=== PATIENT | female | born 1990 | race Caucasian/White ===

== ENCOUNTER 2016-12-05 10:43 | Inpatient (IN) | payer MEDICAID ==
[~2016-12-05] VITALS: Ht 144.8 cm; Wt 48.6 kg
[2016-12-05] MEDS ORDERED: CARBOPROST 250 MCG INJ IM PRN ×2 (11:00→21:00)
[2016-12-05] MEDS ORDERED: OXYTOCIN 30 UNITS/LR 500 ML IV SCH (11:00)
[2016-12-05] MEDS ORDERED: OXYTOCIN 30 UNITS/LR 500 ML IV PRN ×2 (11:00→21:00)
[2016-12-05] MEDS ORDERED: MISOPROSTOL 200 MCG TAB PR PRN ×2 (11:00→21:00)
[2016-12-05] MEDS ORDERED: METHYLERGONOVINE 0.2 MG INJ IM PRN ×2 (11:00→21:00)
[2016-12-05] MEDS ORDERED: CEFAZOLIN 2 GM/50 ML (PMX) 50 ML IVPB SCH (11:00)
--- NOTE | 2016-12-05 11:23 | RADRPT ---
PROCEDURE: Limited OB ultrasound CLINICAL INDICATION: Breech presentation TECHNIQUE: Sonographic evaluation to assess the position was performed. Transabdominal imag ing of the gravid uterus was performed. COMPARISON: No prior exam is available for comparison. FINDINGS: There is a single live intrauterine with cardiac activity, with a heart rate o f 139 bpm. position is breech. The placenta is posterior. There is no evidence of placental abruption or previa. IMPRESSION: Breech presentation. RPTAT: HH .Eli Mendieta MD, MD Date Time Electronically viewed and signed by .Eli Mendieta MD, MD on 12/05/2016 11:23 .G/
[2016-12-05 11:46] LABS: BASOPHIL # 0.1 10^3/ul (0.0-0.1); BASOPHILS % 0.6 % (0.0-2.0); EOSINOPHILS # 0.1 10^3/ul (0.0-0.5); EOSINOPHILS % 1.2 % (0.0-7.0); HEMATOCRIT 38.4 % (37.0-47.0); LYMPHOCYTES # 2.7 10^3/ul (0.8-2.9); LYMPHOCYTES % 29.2 % (15.0-51.0); MEAN CORPUSCULAR HEMOGLOBIN 29.3 pg (29.0-33.0); MEAN CORPUSCULAR HGB CONC 33.7 g/dl (32.0-37.0); MEAN CORPUSCULAR VOLUME 86.7 fl (82.0-101.0); MEAN PLATELET VOLUME 8.4 fl (7.4-10.4); MONOCYTE # 0.7 10^3/ul (0.3-0.9); MONOCYTES % 7.3 % (0.0-11.0); NEUTROPHIL # 5.8 10^3/ul (1.6-7.5); NEUTROPHILS % 61.7 % (39.0-77.0); PLATELET COUNT 217 10^3/UL (140-440); RED BLOOD COUNT 4.43 10^6/ul (4.20-5.40); RED CELL DISTRIBUTION WIDTH 14.4 % (11.5-14.5); UNCORRECTED WBC 9.4 10^3/ul (4.8-10.8); WHITE BLOOD COUNT 9.4 10^3/ul (4.8-10.8)
[2016-12-05 11:50] LABS: CONDITION 1
[2016-12-05 11:56] VITALS: Ht 144.8 cm; Wt 48.6 kg
[2016-12-05 11:57] LABS: INR 0.87; PARTIAL THROMBOPLASTIN TIME 23.6 Sec (25.0-35.0); PROTIME 11.8 Sec (12.2-14.2); PT RATIO 0.9
[2016-12-05 11:59] VITALS: BP 122/79; PULSE 94; RESP 18
[2016-12-05] MEDS: LACTATED RINGER'S 1,000 ML IV SCH ×3 (12:43→21:39)
[2016-12-05] MEDS ORDERED: KETOROLAC 30 MG INJ ONE (15:07)
[2016-12-05] MEDS ORDERED: PROPOFOL 20 ML ONE (15:07)
[2016-12-05] MEDS ORDERED: SUCCINYLCHOLINE CHLORIDE 100 MG/5 ML SYG IV ONE (15:07)
[2016-12-05] MEDS ORDERED: METOCLOPRAMIDE 10 MG INJ ONE (15:07)
[2016-12-05] MEDS ORDERED: ONDANSETRON 4 MG INJ ONE (15:07)
[2016-12-05] MEDS ORDERED: HYDROmorphONE 2 MG/ML SYG ONE (15:21)
[2016-12-05] MEDS ORDERED: PHENYLephrine (100 MCG/ML) 5ML SYG ONE (15:40)
[2016-12-05] MEDS ORDERED: DIPHENHYDRAMINE 50 MG INJ IV PRN ×2 (16:00)
[2016-12-05] MEDS ORDERED: METOCLOPRAMIDE 10 MG INJ IV PRN (16:00)
[2016-12-05] MEDS ORDERED: ONDANSETRON 4 MG INJ IV PRN ×2 (16:00)
[2016-12-05] MEDS ORDERED: HYDROmorphONE 1 MG/ML SYG IV PRN ×2 (16:00)
[2016-12-05] MEDS ORDERED: EPHEDrine SULFATE 50 MG/5 ML SYG IV PRN (16:00)
[2016-12-05] MEDS ORDERED: ACETAMINOPHEN/CODEINE #3 TAB PO PRN ×2 (16:00→21:00)
[2016-12-05] MEDS ORDERED: MEPERIDINE 25 MG INJ IV PRN (16:00)
[2016-12-05] MEDS ORDERED: HYDROmorphONE (0.2 MG/ML) 10ML SYG IV PRN ×3 (16:00)
[2016-12-05] MEDS ORDERED: NALOXONE (0.4 MG/ML) INJ IV PRN (16:00)
[2016-12-05] MEDS ORDERED: HYDROmorphONE 0.2 MG/ML PCA IV SCH (16:00)
--- NOTE | 2016-12-05 16:11 | HP ---
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 Blood Type: O- Rubella: immune RPR/VDRL: Negative GBS Status: Negative HBsAG: Positive OB Admission Exam Vital Signs Vital Signs Vital Signs Date Time Temp Pulse Resp B/P Pulse Ox O2 Delivery O2 Flow Rate FiO2 12/05/16 11:59 98.1 94 18 122/79 Room Air Physical Exam HEENT: WNL Heart: Rhythm Normal Lungs: Clear, Equal Abdomen: WNL Extremities: Normal Reflexes: Normal Cervical Dilatation: None Effacement: 0% Station: -3 Membranes: Intact Heart Rate: 140's Accelerations: Accelerations Present Decelerations: No Decelerations Varibility: Marked Contractions on Admission: None Last 72 hours Lab Results CBC & BMP 12/05/16 11:20 OB Assessment/Plan Other Assessment: breech presentation at term Other plan: primary C/S TAMI CHAUDHARI MD Dec 05, 2016 16:11
--- NOTE | 2016-12-05 16:14 | OPR ---
Operative Report Planned Procedure Procedure date Dec 05, 2016 Procedure(s) primary C/S Performed by: TAMI CHAUDHARI MD Assisting provider: BEN AREVALO MD Anesthesiologist: MARK GATICA MD Pre-procedure diagnosis breech presentation at term Anesthesia Type: general Procedure Description Under satisfactory anaesthesia a Pfannenstiel incision was made two fingerbreadth above and parallel to the symphysis of pubis. Incision was extended laterally to the border of the Recti muscles on either sides. Incision was carried down with sharp and blunt dissection until fascia was reached. Anterior Recti muscle fascia was incised in mid portion and incision extended laterally to the border of skin incision. Fascia was mobilized from muscle superiorly and Recti muscles were from midline using sharp and blunt dissection. Peritoneum was visualized; Avoiding bowel and bladder it was incised . Incision was extended superiorly and inferiorly. Bladder blade was placed. Posterior peritoneum covering the lower segment of the uterus and lower segment of the uterus were incised. Incision was extended laterally to the border of Round Lig. on either sides and baby was delivered via total breech extraction without difficulty. Amniotic fluid appeared clear. Cord blood was obtained and cord had 3 vessels . Placenta was delivered spontaneously and appeared intact and complete. Intrauterine cavity was rubbed with a laparotomy sponge. Uterine incision was closed in 2 layers using running stitches of No1 Monocryl. Hemostasis appeared secure. Ovaries and Fallopian tubes were within normal limits. Announcing needle, lap sponge and instrument count to be correct abdomen was closed in layers as follows: Peritoneum and Recti muscles with running stitches of 20 Vicryl. Fascia with running stitch of No 1 PDS. Subcutaneous tissue with running stitches of 20 Chromic and skin was closed using kym. Patient tolerated the procedure well and was transferred to [facility] in good condition. Post-Procedure Post-procedure diagnosis S/P C/S Findings: Live Baby in footling breech presentation Specimen removed: No Complications: None Pt Condition post procedure: stable Disposition: PACU Physician Certification I, the undersigned physician, hereby certify that I have discussed the procedure described in this consent form with this patient (or the patient's legal front office representative), including: * The risk and benefits of the procedure; * Any adverse reactions that may reasonably be expected to occur; * Any alternative efficacious methods of treatment which may be medically viable ; * The potential problems that may occur during recuperation; * Potential for blood transfusion and associated risks/benefits; and * Any research or economic interest I may have regarding this treatment. I further certify that the patient/legally responsible person was encouraged to ask question and that all questions were answered. TAMI CHAUDHARI MD Dec 05, 2016 16:14
[2016-12-05] MEDS: HYDROmorphONE 1 MG/ML SYG IV PRN (17:18)
[2016-12-05 20:35] VITALS: BP 111/66; PULSE 83; RESP 18
[2016-12-05] MEDS: SENNA/DOCUSATE NA (8.6MG/50MG) TAB PO SCH (21:00)
[2016-12-05] MEDS ORDERED: LANOLIN 7 GM TUBE TOP PRN (21:00)
[2016-12-05] MEDS ORDERED: NA PHOSPHATE/BIPHOS 133 ML ENEMA PR PRN (21:00)
[2016-12-05 21:05] VITALS: BP 114/73; PULSE 85; RESP 18
--- NOTE | 2016-12-05 21:20 | DELSUM ---
Delivery Summary A-C Datetime Report Generated by CPN: 12/05/2016 21:19 DELIVERY PERSONNEL Beer Coil Cleaner: Rebecca De La Garza MATERNAL INFORMATION Delivery Anesthesia: General Medications in Delivery: SEE ANESTHESIA RECORD Estimated Blood Loss (ml): 500 Placenta Cultured: No Maternal Complications: Other Other Maternal Complications: HEPATITIS B POSITIVE LABOR SUMMARY EDC: 12/12/2016 00:00 No. Babies in Womb: 0 Attempted: No Labor Anesthesia: None LABOR INFORMATION Reason for Induction: Not Applicable Oxytocin: N/A Group B Beta Strep: Negative Antibiotics # of Doses: ANCEF 2 GMS IVPB Antibiotics Time of Last Dose: ANCEF AT 1514 Steroids Given: None Reason Steroids Not Administered: Not Applicable MEMBRANES Membranes Rupture Method: Artificial Rupture of Membranes: 12/05/2016 15:35 Length of Rupture (hr): 0.02 Amniotic Fluid Color: Clear Amniotic Fluid Amount: Moderate Amniotic Fluid Odor: None STAGES OF LABOR Stage 3 hr: 1 Stage 3 min: 0 CSECTION DELIVERY Primary Indication: Breech Presentation CSection Urgency: Elective CSection Incidence: Primary Labor: No Labor Elective: Elective CSection Incision: Lower Uterine Transverse BABY A INFORMATION Delivery Date/Time: 12/05/2016 15:36 Method of Delivery: Born in Route : No : N/A Forceps: N/A Vacuum Extraction: N/A Shoulder Dystocia : N/A SHOULDER DYSTOCIA BABY A Infant Delivery Date/Time: 12/05/2016 15:36 PRESENTATION/POSITION BABY A Presentation: Breech Cephalic Presentation: N/A Breech Presentation: Hieu PLACENTA INFORMATION BABY A Placenta Delivery Time : 12/05/2016 16:36 Placenta Method of Delivery: Manual Removal Placenta Status: Delivered SCORES BABY A Heart Rate 1 min: >100 bpm Resp Effort 1 min: Good Cry Reflex Irritability 1 min: Grimace Muscle Tone 1 min: Active Motion Color 1 min: Blue/Pale Resuscitation Effort 1 min: Tactile Stimulation; Oxygen SCORE 1 MIN: 7 Heart Rate 5 min: >100 bpm Resp Effort 5 min: Good Cry Reflex Irritability 5 min: Grimace Muscle Tone 5 min: Active Motion Color 5 min: Body [place], Extremit Blue SCORE 5 MIN: 8 INFANT INFORMATION BABY A Gestational Age at Delivery: 39.0 Gestational Status: Full Term- 39- 40.6 Weeks Outcome : Liveborn Infant Condition : Stable Infant Sex: Female IDENTIFICATION/MEDS BABY A ID Band Number: [id number] ID Band Location: Right Leg; Left Arm Sensor Applied: Yes Sensor Number: [id number] Sensor Location : Cord Clamp Vitamin K Given : Not Given Erythromycin Given: Not Given WEIGHT/LENGTH BABY A Infant Birthweight (gm): 3125 Infant Weight (lb): 6 Weight (oz): 14 Infant Length (in): 19.00 Infant Length (cm): 48.26 CORD INFORMATION BABY A No. Cord Vessels: 3 Nuchal Cord : N/A Cord Blood Taken: Yes Infant Suction: Mouth; Nose ASSESSMENT BABY A Infant Complications: None Physical Findings at Delivery: Within Normal Limits Respirations: Appears Normal Gaming Host/ALS Called : No Infant Care By: OSWALDO ESPINO RN; Denia Miner RT Transferred To: Remains with Mother
[2016-12-05] MEDS: CEFAZOLIN 2 GM/50 ML (PMX) 50 ML IV SCH (21:41)
[2016-12-05] MEDS: IBUPROFEN 800 MG TAB PO SCH (22:00)
[2016-12-06] VITALS: BP 100/55; PULSE 88; RESP 18
[2016-12-06] MEDS: HYDROmorphONE 1 MG/ML SYG IV PRN (00:33)
[2016-12-06] MEDS ORDERED: KETOROLAC 30 MG INJ IV PRN ×3 (02:00→02:30)
[2016-12-06] MEDS ORDERED: morphine 10 MG INJ IV PRN (02:00)
[2016-12-06] MEDS ORDERED: morphine 10 MG INJ IM PRN ×2 (02:00)
[2016-12-06] MEDS ORDERED: morphine 2 MG INJ IV PRN (02:00)
[2016-12-06] MEDS: KETOROLAC 30 MG INJ IV PRN ×3 (02:20→14:53)
[2016-12-06 04:25] VITALS: BP 98/53; PULSE 86; RESP 18
[2016-12-06] MEDS: CEFAZOLIN 2 GM/50 ML (PMX) 50 ML IV SCH ×2 (05:23→13:27)
[2016-12-06] MEDS: CLINDAMYCIN 300 MG CAP PO SCH ×4 (05:25→23:41)
[2016-12-06] MEDS: LACTATED RINGER'S 1,000 ML IV SCH ×3 (05:29→20:53)
[2016-12-06 07:30] VITALS: BP 107/61; PULSE 92; RESP 19
[2016-12-06] MEDS: IBUPROFEN 800 MG TAB PO SCH ×3 (07:45→21:52)
[2016-12-06] MEDS: SENNA/DOCUSATE NA (8.6MG/50MG) TAB PO SCH ×2 (08:08→21:02)
[2016-12-06 08:26] LABS: BASOPHILS % 0.2 % (0.0-2.0); EOSINOPHILS # 0.1 10^3/ul (0.0-0.5); EOSINOPHILS % 0.4 % (0.0-7.0); HEMATOCRIT 33.1 % (37.0-47.0); HEMOGLOBIN 11.2 g/dl (12.0-16.0); LYMPHOCYTES # 1.6 10^3/ul (0.8-2.9); LYMPHOCYTES % 11.1 % (15.0-51.0); MEAN CORPUSCULAR HEMOGLOBIN 29.4 pg (29.0-33.0); MEAN CORPUSCULAR HGB CONC 33.8 g/dl (32.0-37.0); MEAN PLATELET VOLUME 8.5 fl (7.4-10.4); MONOCYTE # 0.6 10^3/ul (0.3-0.9); MONOCYTES % 3.8 % (0.0-11.0); NEUTROPHIL # 12.5 10^3/ul (1.6-7.5); NEUTROPHILS % 84.5 % (39.0-77.0); PLATELET COUNT 206 10^3/UL (140-440); RED CELL DISTRIBUTION WIDTH 14.3 % (11.5-14.5); UNCORRECTED WBC 14.8 10^3/ul (4.8-10.8); WHITE BLOOD COUNT 14.8 10^3/ul (4.8-10.8)
[2016-12-06 08:36] LABS: CONDITION 1
[2016-12-06] MEDS ORDERED: BISACODYL 10 MG SUPP PR ONE (11:00)
[2016-12-06 12:00] VITALS: BP 111/65; PULSE 89; RESP 18
[2016-12-06 13:13] LABS: BASOPHILS % 0.1 % (0.0-2.0); EOSINOPHILS % 0.3 % (0.0-7.0); HEMATOCRIT 33.8 % (37.0-47.0); HEMOGLOBIN 11.2 g/dl (12.0-16.0); LYMPHOCYTES # 1.5 10^3/ul (0.8-2.9); LYMPHOCYTES % 9.8 % (15.0-51.0); MEAN CORPUSCULAR HEMOGLOBIN 29.1 pg (29.0-33.0); MEAN CORPUSCULAR VOLUME 88.1 fl (82.0-101.0); MEAN PLATELET VOLUME 8.3 fl (7.4-10.4); MONOCYTE # 0.7 10^3/ul (0.3-0.9); MONOCYTES % 4.5 % (0.0-11.0); NEUTROPHIL # 12.8 10^3/ul (1.6-7.5); NEUTROPHILS % 85.3 % (39.0-77.0); PLATELET COUNT 204 10^3/UL (140-440); RED BLOOD COUNT 3.84 10^6/ul (4.20-5.40); RED CELL DISTRIBUTION WIDTH 14.9 % (11.5-14.5)
[2016-12-06 13:25] LABS: CONDITION 1; LH ANALYZER COMMENTS 1
[2016-12-06 16:00] VITALS: BP 106/67; PULSE 99; RESP 18
[2016-12-06 19:50] VITALS: BP 118/69; PULSE 89; RESP 19
[2016-12-06] MEDS: OXYCODONE/ACETAMINOPHEN (5/325) TAB PO PRN (21:02)
--- NOTE | 2016-12-06 23:45 | PN ---
Date/Time of Note Date/Time of Note DATE: 12/06/16 TIME: 23:43 Assessment/Plan VTE Prophylaxis VTE Prophylaxis Intervention: ambulation Lines/Catheters IV Catheter Type (from Nrs): Saline Lock Assessment/Plan Assessment/Plan POD # 1 S/P C/S will advance diet and ambulate Subjective 24 Hr Interval Summary NO BM passing flatus Exam/Review of Systems Vital Signs Vitals Vital Signs Date Time Temp Pulse Resp B/P Pulse Ox O2 Delivery O2 Flow Rate FiO2 12/06/16 19:50 98.2 89 19 118/69 Room Air 12/06/16 12:45 97 21 Intake and Output 12/05/16 12/05/16 12/06/16 15:00 23:00 07:00 Intake Total 2000 ml 625 ml 1045 ml Output Total 150 ml 1450 ml 450 ml Balance 1850 ml -825 ml 595 ml Exam Free Text/Dictation abdomen: sof BS + incision: covered Results Result Diagram: 12/06/16 1243 TAMI CHAUDHARI MD Dec 06, 2016 23:44
[2016-12-07] MEDS: LACTATED RINGER'S 1,000 ML IV SCH ×3 (02:05→20:03)
[2016-12-07 04:04] VITALS: BP 101/68; PULSE 86; RESP 19
[2016-12-07] MEDS: OXYCODONE/ACETAMINOPHEN (5/325) TAB PO PRN ×3 (04:04→18:41)
[2016-12-07] MEDS: IBUPROFEN 800 MG TAB PO SCH ×3 (05:31→22:05)
[2016-12-07] MEDS: CLINDAMYCIN 300 MG CAP PO SCH ×4 (05:31→23:56)
[2016-12-07 07:30] VITALS: BP 102/61; PULSE 88; RESP 18
[2016-12-07 08:13] LABS: BASOPHILS % 0.2 % (0.0-2.0); EOSINOPHILS # 0.2 10^3/ul (0.0-0.5); EOSINOPHILS % 1.2 % (0.0-7.0); HEMATOCRIT 31.3 % (37.0-47.0); HEMOGLOBIN 10.4 g/dl (12.0-16.0); LYMPHOCYTES # 1.8 10^3/ul (0.8-2.9); LYMPHOCYTES % 11.3 % (15.0-51.0); MEAN CORPUSCULAR HEMOGLOBIN 28.9 pg (29.0-33.0); MEAN CORPUSCULAR HGB CONC 33.2 g/dl (32.0-37.0); MEAN CORPUSCULAR VOLUME 87.2 fl (82.0-101.0); MONOCYTE # 0.8 10^3/ul (0.3-0.9); NEUTROPHIL # 12.9 10^3/ul (1.6-7.5); NEUTROPHILS % 82.3 % (39.0-77.0); PLATELET COUNT 220 10^3/UL (140-440); RED BLOOD COUNT 3.58 10^6/ul (4.20-5.40); RED CELL DISTRIBUTION WIDTH 14.6 % (11.5-14.5); UNCORRECTED WBC 15.7 10^3/ul (4.8-10.8); WHITE BLOOD COUNT 15.7 10^3/ul (4.8-10.8)
[2016-12-07 08:36] LABS: CONDITION 1; LH ANALYZER COMMENTS 1
[2016-12-07] MEDS: SENNA/DOCUSATE NA (8.6MG/50MG) TAB PO SCH ×2 (08:49→22:05)
[2016-12-07 16:00] VITALS: BP 100/56; PULSE 88; RESP 19
--- NOTE | 2016-12-07 18:34 | DS ---
Date/Time of Note Date/Time of Note home next day DATE: 12/07/16 TIME: 18:32 Obstetrical Discharge Record Final Diagnosis Final Diagnosis: Term delivered Section Section: Primary Primary Indication Breech Condition on Discharge Physical Assessment Last Vitals: see nurses notes Voiding: Yes Bowel Movement: Yes Breast: Soft, non-tender, Filling Fundus: Firm Abdomen and Incision: soft BS incision : healing well Episiotomy: NA Calf Tenderness: No Patient Condition: Good TAMI CHAUDHARI MD Dec 07, 2016 18:34
--- NOTE | 2016-12-07 18:36 | DS ---
Date/Time of Note Date/Time of Note DATE: 12/07/16 TIME: 18:34 Discharge Summary Admission/Discharge Info Admit Date/Time Dec 05, 2016 at 10:43 Discharge Date/Time 12/08/2016 Final Diagnosis S/P C/S Patient Condition: Good Procedures primary C/S for breech Hx of Present Illness 27 y/o female had primary C/S for Breech Hospital Course uncomplicated Pending Labs Laboratory Tests Test 12/07/16 07:15 Basophils # 0.010^3/ul (0.0-0.1) Basophils % 0.2% (0.0-2.0) Blood Morphology Comment Eosinophils # 0.210^3/ul (0.0-0.5) Eosinophils % 1.2% (0.0-7.0) Hematocrit 31.3% (37.0-47.0) Hemoglobin 10.4g/dl (12.0-16.0) Lymphocytes # 1.810^3/ul (0.8-2.9) Lymphocytes % 11.3% (15.0-51.0) Mean Corpuscular Hemoglobin 28.9pg (29.0-33.0) Mean Corpuscular Hemoglobin Concent 33.2g/dl (32.0-37.0) Mean Corpuscular Volume 87.2fl (82.0-101.0) Mean Platelet Volume 8.0fl (7.4-10.4) Monocytes # 0.810^3/ul (0.3-0.9) Monocytes % 5.0% (0.0-11.0) Neutrophils # 12.910^3/ul (1.6-7.5) Neutrophils % 82.3% (39.0-77.0) Nucleated Red Blood Cells # 0.010^3/ul (0.0-0.0) Nucleated Red Blood Cells % 0.0/100WBC (0.0-0.0) Platelet Count 22806^3/UL (140-440) Red Blood Count 3.5810^6/ul (4.20-5.40) Red Cell Distribution Width 14.6% (11.5-14.5) White Blood Count 15.710^3/ul (4.8-10.8) TAMI CHAUDHARI MD Dec 07, 2016 18:36
--- NOTE | 2016-12-07 18:38 | PD.PPDC ---
MANAGER CONTROL Discharge Instruction Provider Information Physician Information 27 y/o female had primary C/S for breech presentation Diagnosis Final Diagnosis: S/P C/S Condition Patient Condition: Good Diet Diet: Resume Regular Diet Activity/Restrictions Activity: March Shower Restrictions: No Exercising No Lifting Nothing in the Vagina Return to Work or School: Feb 06, 2017 Follow-up Follow-up with Physician: 4, Day/Days (in clinic for staple removal ) Return to clinic for FOREMAN/PROJECT MANAGER Instructions: Fever greater than 101 Chills Excessive Vaginal Bleeding OB Instructions: Breast Tenderness Depression Surgical Instructions: Incisional Drainage Incisional Redness TAMI CHAUDHARI MD Dec 07, 2016 18:37
[2016-12-07] MEDS ORDERED: IBUP800T25 PO (18:43)
[2016-12-07 19:30] VITALS: BP 114/76; PULSE 91; RESP 18
[2016-12-08] MEDS: LACTATED RINGER'S 1,000 ML IV SCH (00:47)
[2016-12-08 03:50] VITALS: BP 109/60; PULSE 92; RESP 19
[2016-12-08] MEDS: OXYCODONE/ACETAMINOPHEN (5/325) TAB PO PRN ×2 (04:23→12:18)
[2016-12-08] MEDS: CLINDAMYCIN 300 MG CAP PO SCH ×2 (05:38→11:38)
[2016-12-08] MEDS: IBUPROFEN 800 MG TAB PO SCH ×3 (05:38→22:27)
[2016-12-08 08:00] VITALS: BP 117/76; PULSE 81; RESP 18
[2016-12-08 08:05] LABS: EOSINOPHILS # 0.3 10^3/ul (0.0-0.5); EOSINOPHILS % 1.8 % (0.0-7.0); HEMATOCRIT 32.4 % (37.0-47.0); HEMOGLOBIN 10.9 g/dl (12.0-16.0); LYMPHOCYTES # 1.7 10^3/ul (0.8-2.9); LYMPHOCYTES % 11.4 % (15.0-51.0); MEAN CORPUSCULAR HEMOGLOBIN 29.6 pg (29.0-33.0); MEAN CORPUSCULAR HGB CONC 33.6 g/dl (32.0-37.0); MEAN CORPUSCULAR VOLUME 87.9 fl (82.0-101.0); MEAN PLATELET VOLUME 8.2 fl (7.4-10.4); MONOCYTE # 0.8 10^3/ul (0.3-0.9); MONOCYTES % 5.1 % (0.0-11.0); NEUTROPHIL # 12.2 10^3/ul (1.6-7.5); NEUTROPHILS % 81.7 % (39.0-77.0); PLATELET COUNT 237 10^3/UL (140-440); RED BLOOD COUNT 3.69 10^6/ul (4.20-5.40); RED CELL DISTRIBUTION WIDTH 14.1 % (11.5-14.5); UNCORRECTED WBC 14.9 10^3/ul (4.8-10.8); WHITE BLOOD COUNT 14.9 10^3/ul (4.8-10.8)
[2016-12-08 08:13] LABS: CONDITION 1
[2016-12-08] MEDS ORDERED: DIPHTH/TET/ACEL PERTUSS (ADULT) 0.5 ML VIAL IM* ONE (09:00)
[2016-12-08] MEDS ORDERED: MEASLES,MUMPS,RUBELLA VACCINE INJ SC* ONE (09:00)
[2016-12-08] MEDS: SENNA/DOCUSATE NA (8.6MG/50MG) TAB PO SCH ×2 (09:07→21:01)
--- NOTE | 2016-12-08 14:09 | QN ---
Documentation Comment patient with condition and physical inability to walk will D/C home next day PO antibiotic change TAMI CHAUDHARI MD Dec 08, 2016 14:09
[2016-12-08 15:50] VITALS: BP 102/65; PULSE 76; RESP 19
[2016-12-08 20:00] VITALS: BP 112/76; PULSE 91; RESP 18
[2016-12-08] MEDS: DOXYCYCLINE 100 MG TAB PO SCH (21:01)
[2016-12-09] MEDS: OXYCODONE/ACETAMINOPHEN (5/325) TAB PO PRN ×3 (02:24→14:54)
[2016-12-09 03:50] VITALS: BP 102/67; PULSE 85; RESP 21
[2016-12-09] MEDS: IBUPROFEN 800 MG TAB PO SCH ×2 (05:31→14:09)
[2016-12-09 07:43] LABS: BASOPHILS % 0.4 % (0.0-2.0); EOSINOPHILS # 0.3 10^3/ul (0.0-0.5); EOSINOPHILS % 2.5 % (0.0-7.0); HEMATOCRIT 34.1 % (37.0-47.0); HEMOGLOBIN 11.6 g/dl (12.0-16.0); LYMPHOCYTES # 2.5 10^3/ul (0.8-2.9); LYMPHOCYTES % 21.3 % (15.0-51.0); MEAN CORPUSCULAR HEMOGLOBIN 29.7 pg (29.0-33.0); MEAN CORPUSCULAR HGB CONC 34.1 g/dl (32.0-37.0); MEAN CORPUSCULAR VOLUME 86.9 fl (82.0-101.0); MEAN PLATELET VOLUME 8.1 fl (7.4-10.4); MONOCYTE # 0.6 10^3/ul (0.3-0.9); MONOCYTES % 5.3 % (0.0-11.0); NEUTROPHIL # 8.3 10^3/ul (1.6-7.5); NEUTROPHILS % 70.5 % (39.0-77.0); PLATELET COUNT 282 10^3/UL (140-440); RED BLOOD COUNT 3.92 10^6/ul (4.20-5.40); RED CELL DISTRIBUTION WIDTH 14.1 % (11.5-14.5); UNCORRECTED WBC 11.8 10^3/ul (4.8-10.8); WHITE BLOOD COUNT 11.8 10^3/ul (4.8-10.8)
[2016-12-09 07:56] LABS: CONDITION 1
[2016-12-09 08:45] VITALS: BP 106/68; PULSE 76; RESP 18
[2016-12-09] MEDS: SENNA/DOCUSATE NA (8.6MG/50MG) TAB PO SCH (08:46)
[2016-12-09] MEDS: DOXYCYCLINE 100 MG TAB PO SCH (08:46)
[2016-12-09 12:15] VITALS: BP 110/66; PULSE 72; RESP 20
[2016-12-09 16:30] VITALS: BP 108/88; PULSE 77; RESP 18
== END 2016-12-09 17:28 | disposition home or self-care (01) | DRG 766 ==
LOC: L-D 10:43 → PP1 20:34
PROVIDERS: ADMIT Obstetrics & Gynecology; ATTEND Obstetrics & Gynecology
PROC: 10D00Z1 Extraction of Products of Conception, Low, Open Approach (ICD-10-PCS; principal; 2016-12-05 12:30)
PROC: 3E00X4Z Introduction of Serum, Toxoid and Vaccine into Skin and Mucous Membranes, External Approach (ICD-10-PCS; 2016-12-08)
DX: O32.1XX0 Maternal care for breech presentation, not applicable or unspecified (principal); Z23 Encounter for immunization; Z3A.39 39 weeks gestation of pregnancy; Z37.0 Single live birth
CPT/HCPCS: 76815; 85025; 85610; 85730; 86592; 86704; 86850; 86885; 86900; 86901; 86920; 87340; 90715; 94760; 97162; 99464; J0330; J0690; J1170; J1885; J2370; J2405; J2590; J2765; J2790; J7120

== ENCOUNTER 2017-12-08 01:33 | Inpatient (IN) | END 2017-12-11 21:05 | disposition home or self-care (01) | DRG 781 ==

== ENCOUNTER 2018-05-02 12:35 | Inpatient (IN) | END 2018-05-05 17:05 | disposition home or self-care (01) | DRG 765 ==